=== PATIENT | male | born 2000 | race Two or more races ===

== ENCOUNTER 2022-06-29 10:29 | Emergency (ER) | payer OTHER ==
[~2022-06-29] VITALS: Ht 162.6 cm; Wt 60.0 kg
[2022-06-29 11:16] VITALS: BP 111/76
[2022-06-29] MEDS ORDERED: methylPREDNISolone SOD SUCC 125 MG/2 ML VL IM ONE (11:30)
[2022-06-29] MEDS ORDERED: cefTRIAXone SOD 1,000 MG VL IM ONE (11:30)
[2022-06-29] MEDS ORDERED: LIDOCAINE 1% HCL (LOCAL ANESTH.) INJ 20ML MDV ONE (11:33)
[2022-06-29] MEDS ORDERED: LIDOCAINE 1% HCL (LOCAL ANESTH.) INJ 20ML MDV IJ ONE (11:45)
[2022-06-29] MEDS ORDERED: PENI500T2 PO (12:03)
[2022-06-29] MEDS ORDERED: LIDO2SOL23 MT (12:03)
== END 2022-06-29 12:08 | disposition home or self-care (01) ==
LOC: ER 10:29
DX: J03.00 Acute streptococcal tonsillitis, unspecified (principal)
CPT/HCPCS: 96372; 99284; J0696; J2001; J2930